=== PATIENT | male | born 1955 | race American Indian/Alaskan Native ===

== ENCOUNTER 2019-08-05 09:50 | Day surgery (SDC) | payer MEDICARE ==
[~2019-08-05 09:50] MED LIST: NACL 0.9% 1000 ML 1,000 ML IV SCH
--- NOTE | 2019-08-05 10:42 | Anesthesia Day of Surgery ---
Anesthesia Day of Surgery - Day of Surgery Patient Examined: Yes Patient H&P Reviewed: Yes Patient is NPO: Yes
--- NOTE | 2019-08-05 10:42 | Anesthesia Consultation ---
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
[2019-08-05] MEDS ORDERED: DIPRIVAN 10 MG/ML IV ONE ×2 (10:46)
[2019-08-05] MEDS ORDERED: WATER FOR IRRIG STERILE ONE (10:56)
[2019-08-05] MEDS ORDERED: WATER FOR IRRIG STERILE IR ONE (10:56)
--- NOTE | 2019-08-05 11:20 | Operative Report ---
Operative Report Operative Report: Date of procedure: 08/05/2019 Procedure: Colonoscopy with Multiple Hot Biopsy Polypectomies, ablation of r ectal polyp. Attending physician: John Walsh M.D. Personal Lines Account Manager: John Walsh MD Indication: Patient is a 63-year-old male who presents for screening colonoscopy. Patient has past history of colon polyps. He had an colonoscopy in 2016 with substantial retained stool and relatively poor colonoscopic preparation poor with findings of multiple colon polyps. Patient was to have repeat colonoscopy in one year. Patient presented this time for a repeat colonoscopy for colorectal cancer screening because of poor colonoscopic preparation from his 2017 colonoscopy. This colonoscopy serves to evaluate patient so that treatment may be directed based on the findings. Prior to patients procedure, his history and physical was reviewed in detail. Medications and allergies were also reviewed in detail and patient was felt to be an appropriate candidate for colonoscopy. Consent: Informed consent was obtained after advising the patient and family regarding nature of this procedure, its indications, potential benefits as well as possible complications including but not limited to bleeding perforation and adverse reaction to medication, infection as well as other cardiopulmonary complications. An informed written and verbal consent was then obtained after due opportunity was provided for questions and answers. Monitoring: Patient was monitored continuously with pulse oximetry and electrocardiographic recordings as well as blood pressure recordings. Vital signs remained stable throughout this procedure with no untoward events. Preoperative assessment: Patient was assessed immediately prior to this procedure for capacity to tolerate monitored anesthesia care and moderate sedation as well as general anesthesia. Patient's ASA classification is 3, Mallampati class is 2, Hyomental distance is 3. Instrument: [employer] video colonoscope:[id number] Medications: Propofol given intravenously in divided doses. For details please refer to anesthesia records. Description of procedure: Patient was placed in the left lateral decubitus position after achieving sedation, a digital rectal examination was performed following which the colonoscope was introduced into the anal verge and advanced to the cecum which was identified by the cecal valve, the appendiceal orifice, as well as by the cecal strap and direct transillumination. The colonoscope was subsequently withdrawn with careful inspection of all mucosal surfaces. Patient tolerated this procedure well and was subsequently taken to the recovery room. The following findings were noted. Findings: The preparation was relatively poor. The [place] prep scale score total was 4. Patient had substantial retained stool in various sections of the colon and the overall preparation was deemed inadequate. There was adequate withdrawal time from the cecum to the rectum. There was densely adherent stool in the cecum and proximal ascending colon and descending area could not be well visualized. Patient had a diminutive sessile polyp in the sigmoid colon which measured 4-6 mm. The polyp was removed by hot biopsy polypectomy and retrieved. There were 3 additional diminutive polyps in the rectum measuring 4-6 mm there were removed by hot biopsy polypectomy. There was a flat diminutive polyp in the rectum that was completely ablated. There were no other gross mucosal abnormalities seen. The rest of the colon to the cecum was grossly normal, except for the retained stool. On the retroflex view at the anal verge, patient had internal hemorrhoids. Impression: Diminutive sigmoid colon polyp status post hot biopsy polypectomy. Diminutive rectal polyps status post hot biopsy polypectomy. Diminutive rectal polyp status post ablation. Internal hemorrhoids. Retained stool, with poor colonoscopic preparation. Plan: Follow pathology report. High-fiber diet. Repeat colonoscopy in 1 year due to retained stool.
--- NOTE | 2019-08-05 11:38 | Discharge Summary ---
Short Stay Discharge Plan Activity: advance as tolerated Weight Bearing Status: Weight Bear as Tolerated Diet: regular Follow up with: CATRACHITA GARCIA MD [Primary Care Provider] - 7 Days
[2019-08-05 12:03] VITALS: BP 101/76
[2019-08-05] MEDS ORDERED: XYLOCAINE MPF 2% ONE (12:30)
--- NOTE | 2019-08-05 19:06 | Post Anesthesia Evaluation ---
- Post Anesthesia Evaluation Patient Participated: Yes Airway Patent: Yes Stable Respiratory Function: Yes Nausea/Vomiting: No Temp > 96.8F: Yes Pain Manageable: Yes Adequeate Hydration: Yes Anesthesia Complications: No Block Receding Appropriately: Not Applicable Patient on Ventilator: No
== END 2019-08-05 09:51 | disposition home or self-care (01) ==
LOC: GIO 09:50
PROVIDERS: ATTEND Internal Medicine Gastroenterology
DX: Z12.11 Encounter for screening for malignant neoplasm of colon (principal); D12.5 Benign neoplasm of sigmoid colon; K62.1 Rectal polyp; K64.8 Other hemorrhoids; I10 Essential (primary) hypertension; J44.9 Chronic obstructive pulmonary disease, unspecified; Z98.890 Other specified postprocedural states; Z79.899 Other long term (current) drug therapy; Z79.84 Long term (current) use of oral hypoglycemic drugs; Z87.891 Personal history of nicotine dependence
CPT/HCPCS: 45384; 45388; 88305; J2704; J7030